=== PATIENT | female | born 1955 | race Caucasian/White ===

== ENCOUNTER 2021-01-11 10:29 | Emergency (ER) | payer MEDICARE, OTHER ==
[2021-01-11 11:22] LABS: HEMOGLOBIN 14.6 gm/dl (12.3-15.3); RED BLOOD COUNT 5.01 M/UL (4.00-5.10); WHITE BLOOD COUNT 8.8 K/UL (4.5-11.0)
[2021-01-11 11:42] LABS: BUN/CREATININE RATIO 28 (0-10)
[2021-01-11] MEDS ORDERED: ZOFRAN4 MG PO (13:38)
[2021-01-11] MEDS ORDERED: MECLIZINE HCL25 MG PO (13:38)
== END 2021-01-11 13:48 | disposition home or self-care (01) ==
LOC: ER1 10:29
PROVIDERS: Physician Assistant Medical
DX: R42 Dizziness and giddiness (principal); R11.0 Nausea; E78.5 Hyperlipidemia, unspecified; Z88.0 Allergy status to penicillin; Z85.850 Personal history of malignant neoplasm of thyroid
CPT/HCPCS: 80053; 81001; 82550; 82553; 83874; 84439; 84443; 84484; 85025; 93005; 96374; 99284; J2405

== ENCOUNTER → 2021-01-22 | Outpatient (CLI) | payer MEDICARE, OTHER ==
[~2021-01-22] MED LIST: MECLIZINE HCL25 MG PO; ZOFRAN4 MG PO
== END ==
LOC: MRI 09:15
DX: I10 Essential (primary) hypertension (principal); R42 Dizziness and giddiness; R51.9 Headache, unspecified; R55 Syncope and collapse
CPT/HCPCS: 70551; 93880

== ENCOUNTER → 2022-01-01 | Outpatient (CLI) | payer MEDICARE, OTHER | LOC: KOH-I 15:29 | DX: R05.9 Cough, unspecified (principal) | CPT/HCPCS: 71046 ==

== ENCOUNTER → 2022-01-14 | Outpatient (CLI) | payer MEDICARE, OTHER | LOC: KOH-I 15:18 | DX: M47.26 Other spondylosis with radiculopathy, lumbar region (principal) | CPT/HCPCS: 72110 ==

== ENCOUNTER → 2022-02-19 | Outpatient (CLI) | payer MEDICARE, OTHER | LOC: ECHO 10:29 | DX: R06.02 Shortness of breath (principal); R55 Syncope and collapse; I10 Essential (primary) hypertension; I08.0 Rheumatic disorders of both mitral and aortic valves | CPT/HCPCS: ECHO; 93306 ==

== ENCOUNTER → 2022-02-26 | Outpatient (CLI) | payer MEDICARE, OTHER | LOC: HEART 5 09:47 | DX: R06.02 Shortness of breath (principal); F17.210 Nicotine dependence, cigarettes, uncomplicated | CPT/HCPCS: 94010 ==